=== PATIENT | male | born 1955 | race Caucasian/White ===

== ENCOUNTER 2018-09-06 16:45 | Observation (INO) ==
[2018-09-06] MEDS ORDERED: DEXTROSE 5 % IN WATER 50 ML PGGYBK.PRT IV ONE ×2 (16:54→20:33)
[2018-09-06 17:14] LABS: Hematocrit 42.5 % (37.5-50.1); Hemoglobin 15.8 g/dL (12.9-16.9); Mean Corpuscular Hemoglobin 33.8 pg (28.0-33.3); Mean Corpuscular Volume 90.8 fL (83.0-100.0); Mean Platelet Volume 10.2 fL (9.4-12.4); Platelet Count 233 K/mcL (140-400); Red Blood Count 4.68 M/mcL (4.19-5.50); Red Cell Distribution Width 12.8 % (11.5-14.5)
[2018-09-06] MEDS ORDERED: D5% in Water 500 ML IVC SCH (17:15)
[2018-09-06 17:20] LABS: INR 1.1; Prothrombin Time 12.2 Seconds (9.4-12.1)
[2018-09-06 17:23] LABS: Activated Partial Thrombo Time 34.8 Seconds (26.0-36.0)
--- NOTE | 2018-09-06 17:25 | Emergency Department Note ---
Disposition Clinical Impression: Nondiabetic hypoglycemia, Hyponatremia Pneumonia Qualifiers: Pneumonia type: due to unspecified organism Laterality: bilateral Lung location: lower lobe of lung Qualified Code(s): J18.1 - Lobar pneumonia, unspecified organism Disposition: Admitted As Inpatient Time of Disposition: 20:12 Neuro HPI - General Chief Complaint: ED Neuro Symptoms/Deficit Stated Complaint: low BS/neuro Time Seen by Provider: 09/06/18 16:48 Source: patient, EMS Mode of arrival: ambulatory Limitations: no limitations, other (Patient is extremely hard of hearing) Nursing Notes Reviewed: Yes Vital Signs Reviewed: Yes - History of Present Illness HPI Narrative: History is from EMS and the aquatics group fitness instructor. Unclear as to patient's full past medical history or the reason why he is in a [facility] but he does have psychiatric illness. Patient also has no history of diabetes or use of hypoglycemic medications. He states that he gets his pills and a little cup and did not recognize any pills to be different than his usual. States that he took them from the [facility] staff as he always does. According to [facility] staff, this afternoon just prior to arrival the patient had slight stumble ground level fall over a chair, no significant impact or injury but was drooling and not responding to staff workers and seemed to have slurred speech, right-sided facial droop, right hand weakness so 911 was called. The aquatics group fitness instructor told me that the patient was "talking out of his head" referring specifically to being on the toilet when he was not and seemed c onfused. She indicated that he was sweaty. The patient remembers that he went out to smoke a cigarette. He does admit that he had eaten usual meals today including lunch. He did not have dinner. EMS checked blood sugar at their arrival and found it to be 50. D50W 1/2 amp was administered and focal neurologic symptoms began quickly to resolve and are now completely resolved now after glucose administration. The patient did have blood sugar of 190 immediately after this dextrose, and at arrival in ED was 120. Medication list does not reveal any reasons why blood sugar would be dropping so quickly. D 5W infusion was initiated at 1 50 mL per hour Patient has no complaints. Is oriented. His only request is that he needs to urinate. Patient is a smoker. He admits to a cough. He denies any fevers or chilling. He reports no sputum production. States that he has not felt ill or more congested recently. Denies any abdominal pain. Reports his urination which is always somewhat difficult is at baseline. He denies any feeling that he was having difficulty enunciating his words or that he was having any weakness of an arm or leg. States that he feels strong in his arms and legs now. - Related Data Home Medications: Home Medications Medication Instructions Recorded Confirmed Albuterol Sulfate [Albuterol 1 puff IH Q4HR PRN 09/06/18 09/06/18 Inhaler] Aspirin [[place] Aspirin EC] 81 mg PO DAILY 09/06/18 09/06/18 Docusate [Colace] 100 mg PO BID 09/06/18 09/06/18 Lisinopril [Zestril] 40 mg PO DAILY 09/06/18 09/06/18 Metoprolol Succinate 75 mg PO DAILY 09/06/18 09/06/18 Multivit-Min/Iron Fum/Folic AC 1 each PO DAILY 09/06/18 09/06/18 [Klocp-Ppbvsxs-Onjlwzzt Tablet] Quetiapine Fumarate [Seroquel] 75 mg PO BID 09/06/18 09/06/18 Quetiapine Fumarate [Seroquel] 400 mg PO HS 09/06/18 09/06/18 Trihexyphenidyl [Artane] 2 mg PO TID 09/06/18 09/06/18 fluPHENAZine decanoate 4 ml IM Q2W 09/06/18 09/06/18 [Fluphenazine Decanoate] raNITIdine HCl [Zantac] 150 mg PO BID 09/06/18 09/06/18 Allergies/Adverse Reactions: Allergies Allergy/AdvReac Type Severity Reaction Status Date / Time No Known Allergies Allergy Verified 09/06/18 16:55 All systems ED: reviewed and negative except as stated. Review of Systems: As Per HPI Past Medical History - Past Medical History Medical history: Reports: GERD, hypertension - Social History Smoking Status: Current every day smoker Smokeless Tobacco Status: No Alcohol use: Reports: none Drug use: Reports: none Physical Exam Constitutional: Patient is oriented to person, place, and time. Skin color is pink. Appears well hydrated, body habitus normal . Non toxic appearing. Head: Normocephalic and atraumatic. External ear exam normal. Patient is extremely hard of hearing No facial droop Nose: Nose normal. Mouth/Throat: Uvula is midline, oropharynx is clear and moist and mucous membranes are normal. Eyes: Conjunctivae nl, extraocular motions and lids are normal. Pupils are equal, round, and reactive to light. Neck: Normal range of motion and phonation normal. Neck supple. Cardiovascular: Normal rate, regular rhythm, normal heart sounds. Pulmonary/Chest: No Respiratory distress. Respiratory Effort normal and breath sounds clear. Abdominal: Soft. Slightly distended and bowel sounds are normal. Mildly tenderness suprapubic area with firmly enlarged bladder to just below the umbilicus, no masses, no guarding, no rebound Genitals: No discoloration to the scrotum. No lesions on penis. No masses or swelling of the genitals Musculoskeletal: Good distal pulses. Soft compartments. Brisk cap refill. Extremities: Normal range of motion.Intact peripheral pulses. No Edema. Extremity skin color nl, no calf tenderness or palpable cords. Neurological: GCS 15. Good strength in 4 extremities Patient is alert and oriented without evidence of obvious motor deficits Skin: Diaphoretic Skin is warm, dry and intact. color is normal, cap refill is quick Psychiatric: Patient has normal mood and affect. Patient speech is normal and behavior is normal. Thought content normal. - General Limitations: no limitations General appearance: alert, in no apparent distress Course - Reevaluation(s) Reevaluation #1: Call from [facility] Dr De Jesus radiologist. no focal abnl, no hemorrhage. Time: 17:21 Reevaluation #2: blood sugar 34 when blood work drawn soon after arrival. D5W infusion begun and recheck right now was 77. Time: 17:36 Reevaluation #3: call out to NH for transfer for monitoring and inpt tx of his pneumnia. paperwork has been completed and awaiting respons Time: 19:37 - Consultations Consultation #1: Patient was quite hard of hearing. Staff went home and got his hearing aids. I reexamined him including a full repeat history after his hearing aids were obtained. The patient reports these feeling well now. Unfortunately he intermittently would become diaphoretic. We were checking his blood sugars every 30 minutes and they continue to drop. In spite of the D5 W infusion. T his was adjusted to D10 W at first 1 50 mL per hour and went blood sugars remained 70 increased to 200 mL per hour. It seems clear to me that the patient received some medication that must be dropping his blood sugar . He does have evidence of possible pneumonia on his chest x-ray. Repeat lung examination reveals no wheezing and only slight rhonchi at bilateral bases. Heart regular. He has mild hyponatremia. But he does not have any evidence of other acute abnormalities that would explain this very persistent hypoglycemia Patient will require hospitalization. I am attempting to get him admitted through the NH system since they have all of his records and know him well. His initial symptoms were a stroke mimic. He has no deficits now and is not a candidate for any intervention or thrombolytics Time: 20:08 Consultation #2: Patient has had a full meal. His blood sugar is remaining above 70. He no longer has diaphoresis. His current dose of dextrose is D10 at 200 mL per hour. He is conversational and appropriate, cooperative and calm, understands need for hospitalization. We are still awaiting transfer center at the NH to determine if they will have beds available to take the patient as an inpatient tonight Time: 20:51 Consultation #3: call back from hospitalist at the NH in [place] Dr. Barcenas . He indicates that they do not have the ability to monitor pt properly until morning and [facility]. I do not have the ability continue to monitor the patient's blood sugars every 30 minutes and adjusting of the infusions. The patient will require transfer to facility that does have bed availability now Time: 21:49 Additional Consultation(s): At 22:16 call back from Payal at the NH who indicated that she would suggest that I call the [facility]. I did so and spoke with their coordinator of genetic services and she indicated that she would get the papers to the emergency department doctor at the NH and they may be able to accept him there. 22:41 [facility] declined to accept pt in transfer. pt awake and stable. still awaiting call back from Bisi Adhikari hospitalist 23:14 pt disc w/ hospitalist at [place] Dr Pizano who is indicating that he feels as tho this facility will be able to keep pt since he has now had one hour of blood sugars above 90. 23:[address] Gomez swimming pool serviceperson for [facility] hospitalist. He and I disc case and he feels as tho if the nurses are able to do frequent blood sugar checks. he will be able to accept pt here for over nite. Hospitalist has requested that I enter admitting orders as a courtesy and I have agreed to do so. Pt remains calm, cooperative, eating peanut butter crackers, aware of plan and agreeable. 12:36 10-26 orders entered. Repeat blood sugar was 100 so based on parameters discussed with Dr. Gomez I have decreased the D10 infusion to 200 mL per hour. Repeat blood sugar 30 minutes later was 88. Vital Signs Temperature 98.1 F 09/06/18 16:48 Pulse Rate 84 09/06/18 16:48 Respiratory Rate 18 09/06/18 16:48 Blood Pressure 138/97 09/06/18 16:48 O2 Sat by Pulse Oximetry 98 09/06/18 16:48 Temperature 98.1 F 09/06/18 16:48 Pulse Rate 92 09/06/18 23:24 Respiratory Rate 16 09/06/18 23:24 Blood Pressure 135/98 09/06/18 23:24 O2 Sat by Pulse Oximetry 98 09/06/18 23:24 Oxygen Delivery Oxygen Delivery Room Air Neuro Symptoms/Deficit - MDM Narrative Medical decision making narrative: stroke mimmick from hypoglycemia likely. nl brain scan. pt sx resolved. - Differential Diagnosis Likely: cerebrovascular accident, subarachnoid hemorrhage, transient cerebral ischemia - Lab Data Lab results reviewed: Yes I reviewed the patient's lab results. Result diagrams: 09/06/18 17:04 09/06/18 21:50 Lab Results 09/06/18 09/06/18 09/06/18 Range/Units 17:04 17:04 17:04 WBC 12.2 H (4.3-11.1) K/mcL RBC 4.68 (4.19-5.50) M/mcL Hgb 15.8 (12.9-16.9) g/dL Hct 42.5 (37.5-50.1) % MCV 90.8 (83.0-100.0) fL MCH 33.8 H (28.0-33.3) pg MCHC 37.2 H (31.6-35.5) g/dL RDW 12.8 (11.5-14.5) % Plt Count 233 (140-400) K/mcL MPV 10.2 (9.4-12.4) fL PT 12.2 H (9.4-12.1) Seconds INR 1.1 APTT 34.8 (26.0-36.0) Seconds VBG pH (7.32-7.42) pH Units VBG pCO2 (41-51) mmHg VBG pO2 (25-50) mmHg VBG HCO3 (21-27) mEq/L Sodium (136-145) mEq/L Potassium (3.5-5.1) mEq/L Chloride (98-107) mEq/L Carbon Dioxide (23-29) mEq/L BUN (8-23) mg/dL Creatinine (0.70-1.30) mg/dL Est GFR ( Amer) (> 60) Est GFR (Non-Af Amer) (> 60) BUN/Creatinine Ratio (6-26) Glucose (70-105) mg/dL POC Glucose (70-99) mg/dL Calculated Osmolality (280-300) Lactic Acid (0.5-2.2) mmol/L Calcium (8.6-10.3) mg/dL Total Bilirubin (0.3-1.0) mg/dL AST (13-39) Units/L ALT (7-52) Units/L Alkaline Phosphatase (34-104) Units/L Troponin I < 0.03 (< 0.04) ng/mL B-Natriuretic Peptide (Less than 100) pg/mL Serum Total Protein (6.4-8.9) g/dL Albumin (3.5-5.7) g/dL Globulin (2.4-3.5) g/dL Albumin/Globulin Ratio (1.1-2.2) Urine Color (Yellow) Urine Clarity (Clear) Urine pH (5.0-8.0) pH Units Ur Specific [place] (1.010-1.025) Urine Protein (Neg-Trace) mg/dL Urine Glucose (UA) (Normal) mg/dL Urine Ketones (Negative) mg/dL Urine Blood (Negative) Urine Nitrite (Negative) Urine Bilirubin (Negative) Urine Urobilinogen (Normal) mg/dL Ur Leukocyte Esterase (Negative) Ur Culture Indicated? (NO) Urine Opiates Screen (Gxrbrm=481) ng/mL Ur Barbiturates Screen (Bazrxj=426) ng/mL Ur Phencyclidine Scrn (Cutoff=25) ng/mL Ur Amphetamines Screen (Wnjroi=3730) ng/mL U Benzodiazepines Scrn (Gdnhsm=666) ng/mL Urine Cocaine Screen (Cutoff= 300) ng/mL U Marijuana (THC) Screen (Cutoff = 50) ng/mL Ur Drug Screen Interp Ethyl Alcohol < 10 (Less than 10) mg/dL 09/06/18 09/06/18 09/06/18 Range/Units 17:04 17:32 17:32 WBC (4.3-11.1) K/mcL RBC (4.19-5.50) M/mcL Hgb (12.9-16.9) g/dL Hct (37.5-50.1) % MCV (83.0-100.0) fL MCH (28.0-33.3) pg MCHC (31.6-35.5) g/dL RDW (11.5-14.5) % Plt Count (140-400) K/mcL MPV (9.4-12.4) fL PT (9.4-12.1) Seconds INR APTT (26.0-36.0) Seconds VBG pH (7.32-7.42) pH Units VBG pCO2 (41-51) mmHg VBG pO2 (25-50) mmHg VBG HCO3 (21-27) mEq/L Sodium 126 L (136-145) mEq/L Potassium 3.6 (3.5-5.1) mEq/L Chloride 93 L (98-107) mEq/L Carbon Dioxide 27 (23-29) mEq/L BUN 15 (8-23) mg/dL Creatinine 1.18 (0.70-1.30) mg/dL Est GFR ( Amer) > 60 (> 60) Est GFR (Non-Af Amer) > 60 (> 60) BUN/Creatinine Ratio 13 (6-26) Glucose 34 L* (70-105) mg/dL POC Glucose (70-99) mg/dL Calculated Osmolality 259 L (280-300) Lactic Acid (0.5-2.2) mmol/L Calcium 8.5 L (8.6-10.3) mg/dL Total Bilirubin 0.4 (0.3-1.0) mg/dL AST 31 (13-39) Units/L ALT 12 (7-52) Units/L Alkaline Phosphatase 64 (34-104) Units/L Troponin I (< 0.04) ng/mL B-Natriuretic Peptide (Less than 100) pg/mL Serum Total Protein 6.4 (6.4-8.9) g/dL Albumin 3.9 (3.5-5.7) g/dL Globulin 2.5 (2.4-3.5) g/dL Albumin/Globulin Ratio 1.6 (1.1-2.2) Urine Color Yellow (Yellow) Urine Clarity Clear (Clear) Urine pH 7.0 (5.0-8.0) pH Units Ur Specific [place] 1.010 (1.010-1.025) Urine Protein Negative (Neg-Trace) mg/dL Urine Glucose (UA) Normal (Normal) mg/dL Urine Ketones Negative (Negative) mg/dL Urine Blood Negative (Negative) Urine Nitrite Negative (Negative) Urine Bilirubin Negative (Negative) Urine Urobilinogen Normal (Normal) mg/dL Ur Leukocyte Esterase Negative (Negative) Ur Culture Indicated? NO (NO) Urine Opiates Screen Negative (Mfgkpb=104) ng/mL Ur Barbiturates Screen Negative (Wnznck=586) ng/mL Ur Phencyclidine Scrn Negative (Cutoff=25) ng/mL Ur Amphetamines Screen Negative (Teqcti=5155) ng/mL U Benzodiazepines Scrn Negative (Rqbwol=701) ng/mL Urine Cocaine Screen Negative (Cutoff= 300) ng/mL U Marijuana (THC) Screen Negative (Cutoff = 50) ng/mL Ur Drug Screen Interp See Below Ethyl Alcohol (Less than 10) mg/dL 09/06/18 09/06/18 09/06/18 Range/Units 17:35 17:40 17:40 WBC (4.3-11.1) K/mcL RBC (4.19-5.50) M/mcL Hgb (12.9-16.9) g/dL Hct (37.5-50.1) % MCV (83.0-100.0) fL MCH (28.0-33.3) pg MCHC (31.6-35.5) g/dL RDW (11.5-14.5) % Plt Count (140-400) K/mcL MPV (9.4-12.4) fL PT (9.4-12.1) Seconds INR APTT (26.0-36.0) Seconds VBG pH (7.32-7.42) pH Units VBG pCO2 (41-51) mmHg VBG pO2 (25-50) mmHg VBG HCO3 (21-27) mEq/L Sodium (136-145) mEq/L Potassium (3.5-5.1) mEq/L Chloride (98-107) mEq/L Carbon Dioxide (23-29) mEq/L BUN (8-23) mg/dL Creatinine (0.70-1.30) mg/dL Est GFR ( Amer) (> 60) Est GFR (Non-Af Amer) (> 60) BUN/Creatinine Ratio (6-26) Glucose (70-105) mg/dL POC Glucose 77 (70-99) mg/dL Calculated Osmolality (280-300) Lactic Acid 1.7 (0.5-2.2) mmol/L Calcium (8.6-10.3) mg/dL Total Bilirubin (0.3-1.0) mg/dL AST (13-39) Units/L ALT (7-52) Units/L Alkaline Phosphatase (34-104) Units/L Troponin I (< 0.04) ng/mL B-Natriuretic Peptide 57 (Less than 100) pg/mL Serum Total Protein (6.4-8.9) g/dL Albumin (3.5-5.7) g/dL Globulin (2.4-3.5) g/dL Albumin/Globulin Ratio (1.1-2.2) Urine Color (Yellow) Urine Clarity (Clear) Urine pH (5.0-8.0) pH Units Ur Specific [place] (1.010-1.025) Urine Protein (Neg-Trace) mg/dL Urine Glucose (UA) (Normal) mg/dL Urine Ketones (Negative) mg/dL Urine Blood (Negative) Urine Nitrite (Negative) Urine Bilirubin (Negative) Urine Urobilinogen (Normal) mg/dL Ur Leukocyte Esterase (Negative) Ur Culture Indicated? (NO) Urine Opiates Screen (Gktals=213) ng/mL Ur Barbiturates Screen (Btswxj=311) ng/mL Ur Phencyclidine Scrn (Cutoff=25) ng/mL Ur Amphetamines Screen (Msjdzh=5659) ng/mL U Benzodiazepines Scrn (Tmirdy=927) ng/mL Urine Cocaine Screen (Cutoff= 300) ng/mL U Marijuana (THC) Screen (Cutoff = 50) ng/mL Ur Drug Screen Interp Ethyl Alcohol (Less than 10) mg/dL 09/06/18 09/06/18 09/06/18 Range/Units 17:54 18:14 18:15 WBC (4.3-11.1) K/mcL RBC (4.19-5.50) M/mcL Hgb (12.9-16.9) g/dL Hct (37.5-50.1) % MCV (83.0-100.0) fL MCH (28.0-33.3) pg MCHC (31.6-35.5) g/dL RDW (11.5-14.5) % Plt Count (140-400) K/mcL MPV (9.4-12.4) fL PT (9.4-12.1) Seconds INR APTT (26.0-36.0) Seconds VBG pH 7.37 (7.32-7.42) pH Units VBG pCO2 47 (41-51) mmHg VBG pO2 30 (25-50) mmHg VBG HCO3 27 (21-27) mEq/L Sodium (136-145) mEq/L Potassium (3.5-5.1) mEq/L Chloride (98-107) mEq/L Carbon Dioxide (23-29) mEq/L BUN (8-23) mg/dL Creatinine (0.70-1.30) mg/dL Est GFR ( Amer) (> 60) Est GFR (Non-Af Amer) (> 60) BUN/Creatinine Ratio (6-26) Glucose (70-105) mg/dL POC Glucose 45 L* 49 L* (70-99) mg/dL Calculated Osmolality (280-300) Lactic Acid (0.5-2.2) mmol/L Calcium (8.6-10.3) mg/dL Total Bilirubin (0.3-1.0) mg/dL AST (13-39) Units/L ALT (7-52) Units/L Alkaline Phosphatase (34-104) Units/L Troponin I (< 0.04) ng/mL B-Natriuretic Peptide (Less than 100) pg/mL Serum Total Protein (6.4-8.9) g/dL Albumin (3.5-5.7) g/dL Globulin (2.4-3.5) g/dL Albumin/Globulin Ratio (1.1-2.2) Urine Color (Yellow) Urine Clarity (Clear) Urine pH (5.0-8.0) pH Units Ur Specific [place] (1.010-1.025) Urine Protein (Neg-Trace) mg/dL Urine Glucose (UA) (Normal) mg/dL Urine Ketones (Negative) mg/dL Urine Blood (Negative) Urine Nitrite (Negative) Urine Bilirubin (Negative) Urine Urobilinogen (Normal) mg/dL Ur Leukocyte Esterase (Negative) Ur Culture Indicated? (NO) Urine Opiates Screen (Ohqszx=552) ng/mL Ur Barbiturates Screen (Vjwfrf=383) ng/mL Ur Phencyclidine Scrn (Cutoff=25) ng/mL Ur Amphetamines Screen (Beocqm=8153) ng/mL U Benzodiazepines Scrn (Ahxqdi=701) ng/mL Urine Cocaine Screen (Cutoff= 300) ng/mL U Marijuana (THC) Screen (Cutoff = 50) ng/mL Ur Drug Screen Interp Ethyl Alcohol (Less than 10) mg/dL 09/06/18 09/06/18 09/06/18 Range/Units 18:57 18:58 19:38 WBC (4.3-11.1) K/mcL RBC (4.19-5.50) M/mcL Hgb (12.9-16.9) g/dL Hct (37.5-50.1) % MCV (83.0-100.0) fL MCH (28.0-33.3) pg MCHC (31.6-35.5) g/dL RDW (11.5-14.5) % Plt Count (140-400) K/mcL MPV (9.4-12.4) fL PT (9.4-12.1) Seconds INR APTT (26.0-36.0) Seconds VBG pH (7.32-7.42) pH Units VBG pCO2 (41-51) mmHg VBG pO2 (25-50) mmHg VBG HCO3 (21-27) mEq/L Sodium (136-145) mEq/L Potassium (3.5-5.1) mEq/L Chloride (98-107) mEq/L Carbon Dioxide (23-29) mEq/L BUN (8-23) mg/dL Creatinine (0.70-1.30) mg/dL Est GFR ( Amer) (> 60) Est GFR (Non-Af Amer) (> 60) BUN/Creatinine Ratio (6-26) Glucose (70-105) mg/dL POC Glucose 50 L 47 L* 71 (70-99) mg/dL Calculated Osmolality (280-300) Lactic Acid (0.5-2.2) mmol/L Calcium (8.6-10.3) mg/dL Total Bilirubin (0.3-1.0) mg/dL AST (13-39) Units/L ALT (7-52) Units/L Alkaline Phosphatase (34-104) Units/L Troponin I (< 0.04) ng/mL B-Natriuretic Peptide (Less than 100) pg/mL Serum Total Protein (6.4-8.9) g/dL Albumin (3.5-5.7) g/dL Globulin (2.4-3.5) g/dL Albumin/Globulin Ratio (1.1-2.2) Urine Color (Yellow) Urine Clarity (Clear) Urine pH (5.0-8.0) pH Units Ur Specific [place] (1.010-1.025) Urine Protein (Neg-Trace) mg/dL Urine Glucose (UA) (Normal) mg/dL Urine Ketones (Negative) mg/dL Urine Blood (Negative) Urine Nitrite (Negative) Urine Bilirubin (Negative) Urine Urobilinogen (Normal) mg/dL Ur Leukocyte Esterase (Negative) Ur Culture Indicated? (NO) Urine Opiates Screen (Mivsea=125) ng/mL Ur Barbiturates Screen (Hkggiy=183) ng/mL Ur Phencyclidine Scrn (Cutoff=25) ng/mL Ur Amphetamines Screen (Snmdnu=3588) ng/mL U Benzodiazepines Scrn (Xkrdpz=524) ng/mL Urine Cocaine Screen (Cutoff= 300) ng/mL U Marijuana (THC) Screen (Cutoff = 50) ng/mL Ur Drug Screen Interp Ethyl Alcohol (Less than 10) mg/dL 09/06/18 09/06/18 09/06/18 Range/Units 20:20 21:13 21:44 WBC (4.3-11.1) K/mcL RBC (4.19-5.50) M/mcL Hgb (12.9-16.9) g/dL Hct (37.5-50.1) % MCV (83.0-100.0) fL MCH (28.0-33.3) pg MCHC (31.6-35.5) g/dL RDW (11.5-14.5) % Plt Count (140-400) K/mcL MPV (9.4-12.4) fL PT (9.4-12.1) Seconds INR APTT (26.0-36.0) Seconds VBG pH (7.32-7.42) pH Units VBG pCO2 (41-51) mmHg VBG pO2 (25-50) mmHg VBG HCO3 (21-27) mEq/L Sodium (136-145) mEq/L Potassium (3.5-5.1) mEq/L Chloride (98-107) mEq/L Carbon Dioxide (23-29) mEq/L BUN (8-23) mg/dL Creatinine (0.70-1.30) mg/dL Est GFR ( Amer) (> 60) Est GFR (Non-Af Amer) (> 60) BUN/Creatinine Ratio (6-26) Glucose (70-105) mg/dL POC Glucose 83 69 L 84 (70-99) mg/dL Calculated Osmolality (280-300) Lactic Acid (0.5-2.2) mmol/L Calcium (8.6-10.3) mg/dL Total Bilirubin (0.3-1.0) mg/dL AST (13-39) Units/L ALT (7-52) Units/L Alkaline Phosphatase (34-104) Units/L Troponin I (< 0.04) ng/mL B-Natriuretic Peptide (Less than 100) pg/mL Serum Total Protein (6.4-8.9) g/dL Albumin (3.5-5.7) g/dL Globulin (2.4-3.5) g/dL Albumin/Globulin Ratio (1.1-2.2) Urine Color (Yellow) Urine Clarity (Clear) Urine pH (5.0-8.0) pH Units Ur Specific [place] (1.010-1.025) Urine Protein (Neg-Trace) mg/dL Urine Glucose (UA) (Normal) mg/dL Urine Ketones (Negative) mg/dL Urine Blood (Negative) Urine Nitrite (Negative) Urine Bilirubin (Negative) Urine Urobilinogen (Normal) mg/dL Ur Leukocyte Esterase (Negative) Ur Culture Indicated? (NO) Urine Opiates Screen (Wojeri=616) ng/mL Ur Barbiturates Screen (Iedxdh=063) ng/mL Ur Phencyclidine Scrn (Cutoff=25) ng/mL Ur Amphetamines Screen (Mltkzg=7465) ng/mL U Benzodiazepines Scrn (Ktabiy=993) ng/mL Urine Cocaine Screen (Cutoff= 300) ng/mL U Marijuana (THC) Screen (Cutoff = 50) ng/mL Ur Drug Screen Interp Ethyl Alcohol (Less than 10) mg/dL 09/06/18 09/06/18 09/06/18 Range/Units 21:50 22:12 22:40 WBC (4.3-11.1) K/mcL RBC (4.19-5.50) M/mcL Hgb (12.9-16.9) g/dL Hct (37.5-50.1) % MCV (83.0-100.0) fL MCH (28.0-33.3) pg MCHC (31.6-35.5) g/dL RDW (11.5-14.5) % Plt Count (140-400) K/mcL MPV (9.4-12.4) fL PT (9.4-12.1) Seconds INR APTT (26.0-36.0) Seconds VBG pH (7.32-7.42) pH Units VBG pCO2 (41-51) mmHg VBG pO2 (25-50) mmHg VBG HCO3 (21-27) mEq/L Sodium 128 L (136-145) mEq/L Potassium 3.6 (3.5-5.1) mEq/L Chloride 91 L (98-107) mEq/L Carbon Dioxide 30 H (23-29) mEq/L BUN 14 (8-23) mg/dL Creatinine 1.35 H (0.70-1.30) mg/dL Est GFR ( Amer) > 60 (> 60) Est GFR (Non-Af Amer) 54 L (> 60) BUN/Creatinine Ratio 10 (6-26) Glucose 59 L (70-105) mg/dL POC Glucose 67 L 95 (70-99) mg/dL Calculated Osmolality 264 L (280-300) Lactic Acid (0.5-2.2) mmol/L Calcium 9.1 (8.6-10.3) mg/dL Total Bilirubin (0.3-1.0) mg/dL AST (13-39) Units/L ALT (7-52) Units/L Alkaline Phosphatase (34-104) Units/L Troponin I (< 0.04) ng/mL B-Natriuretic Peptide (Less than 100) pg/mL Serum Total Protein (6.4-8.9) g/dL Albumin (3.5-5.7) g/dL Globulin (2.4-3.5) g/dL Albumin/Globulin Ratio (1.1-2.2) Urine Color (Yellow) Urine Clarity (Clear) Urine pH (5.0-8.0) pH Units Ur Specific [place] (1.010-1.025) Urine Protein (Neg-Trace) mg/dL Urine Glucose (UA) (Normal) mg/dL Urine Ketones (Negative) mg/dL Urine Blood (Negative) Urine Nitrite (Negative) Urine Bilirubin (Negative) Urine Urobilinogen (Normal) mg/dL Ur Leukocyte Esterase (Negative) Ur Culture Indicated? (NO) Urine Opiates Screen (Mfssqt=503) ng/mL Ur Barbiturates Screen (Wilhfy=483) ng/mL Ur Phencyclidine Scrn (Cutoff=25) ng/mL Ur Amphetamines Screen (Ovwmzy=6155) ng/mL U Benzodiazepines Scrn (Vwojtg=360) ng/mL Urine Cocaine Screen (Cutoff= 300) ng/mL U Marijuana (THC) Screen (Cutoff = 50) ng/mL Ur Drug Screen Interp Ethyl Alcohol (Less than 10) mg/dL 09/06/18 09/06/18 Range/Units 23:14 23:46 WBC (4.3-11.1) K/mcL RBC (4.19-5.50) M/mcL Hgb (12.9-16.9) g/dL Hct (37.5-50.1) % MCV (83.0-100.0) fL MCH (28.0-33.3) pg MCHC (31.6-35.5) g/dL RDW (11.5-14.5) % Plt Count (140-400) K/mcL MPV (9.4-12.4) fL PT (9.4-12.1) Seconds INR APTT (26.0-36.0) Seconds VBG pH (7.32-7.42) pH Units VBG pCO2 (41-51) mmHg VBG pO2 (25-50) mmHg VBG HCO3 (21-27) mEq/L Sodium (136-145) mEq/L Potassium (3.5-5.1) mEq/L Chloride (98-107) mEq/L Carbon Dioxide (23-29) mEq/L BUN (8-23) mg/dL Creatinine (0.70-1.30) mg/dL Est GFR ( Amer) (> 60) Est GFR (Non-Af Amer) (> 60) BUN/Creatinine Ratio (6-26) Glucose (70-105) mg/dL POC Glucose 91 100 H (70-99) mg/dL Calculated Osmolality (280-300) Lactic Acid (0.5-2.2) mmol/L Calcium (8.6-10.3) mg/dL Total Bilirubin (0.3-1.0) mg/dL AST (13-39) Units/L ALT (7-52) Units/L Alkaline Phosphatase (34-104) Units/L Troponin I (< 0.04) ng/mL B-Natriuretic Peptide (Less than 100) pg/mL Serum Total Protein (6.4-8.9) g/dL Albumin (3.5-5.7) g/dL Globulin (2.4-3.5) g/dL Albumin/Globulin Ratio (1.1-2.2) Urine Color (Yellow) Urine Clarity (Clear) Urine pH (5.0-8.0) pH Units Ur Specific [place] (1.010-1.025) Urine Protein (Neg-Trace) mg/dL Urine Glucose (UA) (Normal) mg/dL Urine Ketones (Negative) mg/dL Urine Blood (Negative) Urine Nitrite (Negative) Urine Bilirubin (Negative) Urine Urobilinogen (Normal) mg/dL Ur Leukocyte Esterase (Negative) Ur Culture Indicated? (NO) Urine Opiates Screen (Epplqq=705) ng/mL Ur Barbiturates Screen (Stjfvp=037) ng/mL Ur Phencyclidine Scrn (Cutoff=25) ng/mL Ur Amphetamines Screen (Ajgveo=6648) ng/mL U Benzodiazepines Scrn (Jkajpm=388) ng/mL Urine Cocaine Screen (Cutoff= 300) ng/mL U Marijuana (THC) Screen (Cutoff = 50) ng/mL Ur Drug Screen Interp Ethyl Alcohol (Less than 10) mg/dL - Radiology Data Radiology results reviewed: Yes I reviewed the patient's radiology results. CT brain without acute intracranial abnormalities per radiology Chest x-ray portable report from radiology impression "mild. Perihilar vascular congestion is seen. Low lung volumes" - EKG Data EKG attestation: Yes I reviewed and interpreted this EKG. EKG results narrative: Some artifact of baseline. Otherwise no evidence of acute ST-T wave changes. Normal intervals. EKG shows normal: sinus rhythm Rate: normal Rhythm: NSR NIH Stroke Scale - Level of Consciousness LOC: Alert - LOC Questions LOC Questions: Answers both correctly - LOC Commands LOC Commands: Performs both correctly - Best Gaze Best Gaze: Normal - Visual Visual: No visual loss - Facial Palsy Facial Palsy: Normal - Motor Arms Motor Arm-Left: No drift for 10 seconds Motor Arm-Right: No drift for 10 seconds - Motor Legs Motor Leg-Left: No drift for 5 seconds Motor Leg-Right: No drift for 5 seconds - Limb Ataxia Limb Ataxia: Normal, No Ataxia - Sensory Sensory: Normal - Best Language Best Language: No aphasia - Dysarthria Dysarthria: Normal - Extinction and Inattention Extinction and Inattention: Normal - NIHSS Total Score NIHSS Total Score: 0 TPA Checklist - LKW: 3-4.5 hrs Add. Warnings/Precautions Patient/family understanding: The patient/family members have been counseled and understood the risk, benefit, and alternatives of treatment.
[2018-09-06 17:28] LABS: Ethanol < 10 mg/dL (Less than 10)
[2018-09-06] MEDS ORDERED: Ampicillin/Sulbactam 3,000 MG in 0.9 % Sodium Chloride Mini Bag 100 ML IVPB ONE (17:30)
[2018-09-06 17:31] LABS: Alanine Aminotransferase 12 Units/L (7-52); Albumin 3.9 g/dL (3.5-5.7); Albumin/Globulin Ratio 1.6 (1.1-2.2); Alkaline Phosphatase 64 Units/L (34-104); Aspartate Amino Transferase 31 Units/L (13-39); BUN/Creatinine Ratio 13 (6-26); Bilirubin,Total 0.4 mg/dL (0.3-1.0); Blood Urea Nitrogen 15 mg/dL (8-23); Calcium 8.5 mg/dL (8.6-10.3); Carbon Dioxide 27 mEq/L (23-29); Chloride 93 mEq/L (98-107); Globulin 2.5 g/dL (2.4-3.5); Glucose 34 mg/dL (70-105); Mean Corpuscular HGB Conc 37.2 g/dL (31.6-35.5); Osmolality,Calculated 259 (280-300); Potassium 3.6 mEq/L (3.5-5.1); Sodium 126 mEq/L (136-145); Total Protein 6.4 g/dL (6.4-8.9); Troponin I < 0.03 ng/mL (< 0.04); eGFR For Non-African Americans > 60 (> 60)
[2018-09-06 18:00] LABS: Bilirubin,Urine Negative (Negative); Blood,Urine Negative (Negative); Clarity,Urine Clear (Clear); Color,Urine Yellow (Yellow); Glucose,Urine (UA) Normal (Normal); Ketones,Urine Negative (Negative); Leukocyte Esterase,Urine Negative (Negative); Nitrite,Urine Negative (Negative); Protein,Urine Negative (Neg-Trace); Urobilinogen,Urine Normal (Normal)
[2018-09-06 18:12] LABS: VBG HCO3 27 mEq/L (21-27); VBG PCO2 47 mmHg (41-51); VBG PH 7.37 pH Units (7.32-7.42); VBG PO2 30 mmHg (25-50)
[2018-09-06] MEDS: *HR* Dextrose 50 % in Water (Syg) 50 ML SYRINGE IVP ONE ×2 (18:20→19:09)
[2018-09-06 18:51] LABS: Amphetamine Screen,Urine Negative ng/mL (Cutoff=1000); Barbiturate Screen,Urine Negative ng/mL (Cutoff=200); Benzodiazepines Screen,Urine Negative ng/mL (Cutoff=200); Cannabinoid Screen,Urine Negative ng/mL (Cutoff = 50); Cocaine Screen,Urine Negative ng/mL (Cutoff= 300); Opiate Screen,Urine Negative ng/mL (Cutoff=300); Phencyclidine Screen,Urine Negative ng/mL (Cutoff=25)
[2018-09-06] MEDS ORDERED: *HR* Dextrose 50 % in Water (Syg) 50 ML SYRINGE ONE (18:59)
[2018-09-06] MEDS ORDERED: D10% in Water 500 ML IVC ONE (18:59)
[2018-09-06] MEDS ORDERED: D5 IVC ONE (20:45)
[2018-09-06] MEDS ORDERED: WATER IVC ONE (20:45)
[2018-09-06 22:19] LABS: BUN/Creatinine Ratio 10 (6-26); Blood Urea Nitrogen 14 mg/dL (8-23); Calcium 9.1 mg/dL (8.6-10.3); Carbon Dioxide 30 mEq/L (23-29); Chloride 91 mEq/L (98-107); Glucose 59 mg/dL (70-105); Osmolality,Calculated 264 (280-300); Potassium 3.6 mEq/L (3.5-5.1); Sodium 128 mEq/L (136-145); eGFR For Non-African Americans 54 (> 60)
[2018-09-06] MEDS: D10% in Water 500 ML IVC SCH (22:20)
[2018-09-07] MEDS ORDERED: Ipratropium/Albuterol Neb 3 ML IH ONE ×2 (00:29→01:13)
[2018-09-07] MEDS: D10% in Water 500 ML IVC SCH ×4 (00:45→08:11)
[2018-09-07] MEDS ORDERED: *HR* Dextrose 50 % in Water (Syg) 50 ML SYRINGE ONE (01:13)
[2018-09-07] MEDS ORDERED: Acetaminophen 325 MG TABLET PO PRN (01:13)
[2018-09-07] MEDS ORDERED: Naloxone 0.4 MG/ML INJ IVP PRN (01:13)
[2018-09-07 05:00] LABS: BUN/Creatinine Ratio 11 (6-26); Blood Urea Nitrogen 14 mg/dL (8-23); Calcium 9.2 mg/dL (8.6-10.3); Carbon Dioxide 24 mEq/L (23-29); Chloride 95 mEq/L (98-107); Glucose 115 mg/dL (70-105); Magnesium 1.7 mg/dL (1.6-2.6); Osmolality,Calculated 265 (280-300); Phosphorous 3.2 mg/dL (2.7-4.5); Potassium 3.9 mEq/L (3.5-5.1); Sodium 127 mEq/L (136-145); eGFR For Non-African Americans 55 (> 60)
[2018-09-07] MEDS ORDERED: Ampicillin/Sulbactam 3,000 MG in 0.9 % Sodium Chloride Mini Bag 100 ML IVPB SCH (06:00)
[2018-09-07] MEDS ORDERED: Famotidine 20 MG TABLET PO SCH (07:00)
[2018-09-07] MEDS ORDERED: *HR* Enoxaparin 40 MG/0.4 ML SYRINGE SQ SCH (07:00)
[2018-09-07 07:05] VITALS: BP 132/79
[2018-09-07] MEDS ORDERED: Aspirin Enteric Coated 81 MG Tablet PO SCH (09:00)
[2018-09-07] MEDS ORDERED: Lisinopril 20 MG TABLET PO SCH (09:00)
[2018-09-07] MEDS ORDERED: Metoprolol XL (24 HR) Succ 50 MG TAB.ER.24H PO SCH (09:00)
--- NOTE | 2018-09-07 09:18 | Internal Med History&Physical ---
Date of Encounter: 09/07/18 Time of Encounter: 09:15 Assessment and Plan (1) Nondiabetic hypoglycemia Current visit: Yes Status: Acute In ED he was noted to be hypoglycemic he is not a diabetic and is not tkaing any medications which could cause lives in a group house . During his ED visit there was some difficulty to sustain his blood sugars and required multiple vials of Dextrose . At the present time he is eating his meals now his last few blood sugars have been wthin normal range now . He did state that he was not eating well before his admission . He also denied taking anyone else medication by mistake. There is no evidence of sepsis or any infection either . WBC is mildly high UA is negative CXR negative however he is COPD since he does smoke . He was started on Antibiotics during his admission . Plan is to continue to eat and watch if stable he could be discharged by evening or in the morning . (2) Hyponatremia Current visit: Yes Status: Acute Noted to be hyponaterimic Cause not known .he has hx of psychosis and could be his drinking water . Will follow > Control fluid intake and then followup (3) HTN (hypertension) Current visit: Yes Status: Acute Continue present medications at the present . His BP is s table Qualifiers: Hypertension type: essential hypertension Qualified Code(s): I10 - Essential (primary) hypertension (4) Psychosis Current visit: Yes Status: Acute hx of Psychosis and has been getting his medications from [place] continue present meds including cogentin which he is taking it for his tremors per records. he is on Fluphenazine decon. injectable q 2 weeks. Clinically he is stable Qualifiers: Psychosis type: unspecified psychosis type Qualified Code(s): F29 - Unspecified psychosis not due to a substance or known physiological condition Internal Medicine - H&P: HPI Admitted From: Emergency Dept History of present illness: Mr. Galvan is a 62 year old male who is followed at [facility] hospital lives in a retirement was noted to fell down while smoking . He denies that he hit his head or lost consciousness. he denies that he had chest pain Nausea vomiting or diarrhea At the ED he was found to be hypoglycemic . He is not a diabetic and is not taking any medications to lower his blood sugars. He denies any fever or chills no urinary complains NO SOB smokes but no cough, chills SON chest pain or palpitation No complains of dizziness or weakness. He denies that he had taken any over the counter drugs or was drinking . last ETOH was many years ago . Past Med Surg Social Fam HX - Past Medical History Medical history: GERD, hypertension Psychiatric history: anxiety, other - Social History Smoking Status: Current every day smoker Smokeless Tobacco Status: No Alcohol use: none Drug use: none Internal Medicine - H&P: Meds Albuterol Sulfate [Albuterol Inhaler] 1 puff IH Q4HR PRN 09/06/18 [History] Aspirin [[place] Aspirin EC] 81 mg PO DAILY 09/06/18 [History] Docusate [Colace] 100 mg PO BID 09/06/18 [History] Lisinopril [Zestril] 40 mg PO DAILY 09/06/18 [History] Metoprolol Succinate 75 mg PO DAILY 09/06/18 [History] Multivit-Min/Iron Fum/Folic AC [Lrsyi-Gdpsger-Klfwpfrg Tablet] 1 each PO DAILY 09/06/18 [History] Quetiapine Fumarate [Seroquel] 75 mg PO BID 09/06/18 [History] Quetiapine Fumarate [Seroquel] 400 mg PO HS 09/06/18 [History] Trihexyphenidyl [Artane] 2 mg PO TID 09/06/18 [History] fluPHENAZine decanoate [Fluphenazine Decanoate] 4 ml IM Q2W 09/06/18 [History] raNITIdine HCl [Zantac] 150 mg PO BID 09/06/18 [History] Allergy/AdvReac Type Severity Reaction Status Date / Time No Known Allergies Allergy Verified 09/06/18 16:55 All Systems PM: A 10-system review of systems was performed and is negative for pertinent findings except as documented above in the HPI. - Constitutional Constitutional: falls, no anorexia, no chills, no excessive sweating, no fatigue, no fever(s), no lethargy, no malaise, no night sweats, no weakness, no weight gain, no weight loss - EENT Eyes: no blurry vision, no diplopia, no discharge, no pain, no photophobia, no seeing flashes Ears: no ear pain Nose, mouth and throat: no bleeding gums, no dry mouth, no dysphagia, no epistaxis, no hoarseness, no nasal congestion, no nasal discharge, no neck pain, no sinus pain, no sinus pressure - Cardiovascular Cardiovascular ROS IM: no chest pain, no claudication, no diaphoresis, no dyspnea, no dyspnea on exertion, no edema, no irregular heart rhythm, no lightheadedness, no orthopnea, no palpitations, no paroxysmal nocturnal dyspnea, no syncope - Respiratory Respiratory: no cough, no dyspnea, no hemoptysis, no dyspnea on exertion, no wheezing, no snoring, no pain on inspiration, no chest congestion, no excessive phlegm production, no change in phlegm color - Gastrointestinal Gastrointestinal: no abdominal pain, no belching, no change in bowel habits, no change in stool character, no constipation, no cramping, no diarrhea, no dyspepsia, no heartburn, no hematemesis, no hematochezia, no loose stools, no melena, no nausea, no vomiting - Genitourinary Genitourinary ROS male: no difficulty urinating, no dysuria, no flank pain, no nocturia, no penile discharge, no testicular pain, no urinary frequency, no urinary hesitancy, no urinary urgency - Musculoskeletal Musculoskeletal ROS IM: no arthralgias, no atrophy, no back pain - Integumentary Integumentary IM: no erythema - Neurological Neurological ROS: tremor(s) (resting tremors both hands not pinrolling ), no abnormal gait, no abnormal speech, no burning sensations, no confusion, no paresthesias - Constitutional Vitals: Temp Pulse Resp BP Pulse Ox 98.5 F 109 16 132/79 95 09/07/18 07:04 09/07/18 07:04 09/07/18 07:04 09/07/18 07:04 09/07/18 07:04 General appearance: Present: A&O X 3, pleasant, obese, answers questions appropriately - Head Head exam: Present: atraumatic - Eye Eye exam: Present: EOMI, PERRL. Absent: scleral icterus, conjuntiva pink Pupils: Present: PERRL - ENT ENT exam: Present: mucous membranes moist, normal oropharynx - Neck Neck exam general surgery: Present: full ROM, supple. Absent: tenderness, nuchal rigidity - Respiratory Respiratory exam: Present: decreased breath sounds, prolonged expiratory phase, wheezes. Absent: chest wall tenderness, respiratory distress, rhonchi, stridor, tachypnea Additional comments: some mild crackles and prolong expiration on his back decrease air entry in the front both sides - Cardiovascular Cardiovascular exam: Present: RRR, +S1, +S2, tachycardia. Absent: irregular rhythm, JVD, systolic murmur Additional comments: mild tachycardia noted - GI/Abdominal GI/Abdominal exam: Present: normal bowel sounds, soft. Absent: diminished bowel sounds, rebound, rigid, splenomegaly, tenderness Additional comments: mildly obese soft .non tender BS ++ - Extremities Exam Extremities exam: Present: full ROM. Absent: pedal edema, tenderness - Neurological Exam Neurological exam: Present: alert, CN II-XII intact, oriented X3, no focal deficits, strengths equal and symetr throughout. Absent: facial droop, speech deficit Additional comments: He is able to stand and walk without any difficulty or support no dizziness - Psychiatric Psychiatric exam: Absent: homicidal ideation, suicidal ideation Additional comments: hx of Psychosis Internal Med - H&P Results - Labs CBC & Chem 7: 09/06/18 17:04 09/07/18 04:13 Labs: Short CBC 09/06/18 Range/Units 17:04 WBC 12.2 H (4.3-11.1) K/mcL Hgb 15.8 (12.9-16.9) g/dL Hct 42.5 (37.5-50.1) % Plt Count 233 (140-400) K/mcL [facility] 09/06/18 09/06/18 09/07/18 17:04 21:50 04:13 Sodium 126 L 128 L 127 L Potassium 3.6 3.6 3.9 Chloride 93 L 91 L 95 L Carbon Dioxide 27 30 H 24 BUN 15 14 14 Creatinine 1.18 1.35 H 1.32 H Glucose 34 L* 59 L 115 H Calcium 8.5 L 9.1 9.2 Cardiac Enzymes 09/06/18 Range/Units 17:04 Troponin I < 0.03 (< 0.04) ng/mL Liver Function 09/06/18 Range/Units 17:04 Total Bilirubin 0.4 (0.3-1.0) mg/dL AST 31 (13-39) Units/L ALT 12 (7-52) Units/L Alkaline Phosphatase 64 (34-104) Units/L Albumin 3.9 (3.5-5.7) g/dL Urine 09/06/18 Range/Units 17:32 Urine Color Yellow (Yellow) Urine Clarity Clear (Clear) Urine pH 7.0 (5.0-8.0) pH Units Ur Specific [place] 1.010 (1.010-1.025) Urine Protein Negative (Neg-Trace) mg/dL Urine Glucose (UA) Normal (Normal) mg/dL - ABG Interpretation ABG results: 09/06/18 17:54 VBG pH 7.37 VBG pCO2 47 VBG pO2 30 VBG HCO3 27 - Impressions ITS Impressions Head CT 09/06/18 16:49 IMPRESSION: No acute intracranial abnormality. Slightly limited exam due to artifact. Critical results were called by Dr. Marques Beltran to Renetta Rosenberg on 09/06/2018 at 17:22. D/ / Marques Beltran / Marques Beltran Interpreting Provider: Marques Beltran Chest X-Ray 09/06/18 16:50 IMPRESSION: 1. Mild perihilar vascular congestion is seen. 2. Low lung volumes. D/ / 09/06/2018 17:34:38 Thao High MD / mykel Interpreting Provider: Thao High MD
--- NOTE | 2018-09-07 12:12 | Discharge Summary ---
Orders not resulted at time of discharge: Pending orders 09/06/18 17:40 Culture,Blood [BC] Stat 09/07/18 01:30 Drug Screen, Urine [UCHEM] Stat 09/08/18 04:00 Basic Metabolic Panel AM 0400 Osmolality AM 0400 Osmolality,Urine [UCHEM] AM 0400 TSH [Thyroid Stimulating Hormone] AM 0400 Date of Encounter: 09/07/18 Time of Encounter: 12:11 - Discharge Diagnosis (1) Nondiabetic hypoglycemia Priority: Primary Status: Acute Comments: Patient was admitted due to nondiabetic hypoglycemia. Patient was treated with glucose, IV fluids and observed overnight. Patient's glucose has maintained greater than 100 today and patient has been eating well with a regular diet. Patient denies any issues. We will be [facility] back [facility] his [facility] with no changes in current medications. Suspect possible medication error precipitated patient's admission. Patient recommended to follow-up with PCP in 1 week (2) HTN (hypertension) Priority: Secondary Status: Acute Comments: No acute issues during his stay. Vital signs remained stable. Patient to continue with current medications after discharge and follow-up with PCP. Qualifiers: Hypertension type: essential hypertension Qualified Code(s): I10 - Essential (primary) hypertension Hospital course: Mr. Galvan is a 62 year old male who is followed at [facility] and lives in a prison and was noted to fall down while smoking . He denies that he hit his head or lost consciousness. He had a change in LOC and was taken to the ED, where he was noted to be hypoglycemic with a glucose <50. He is not a diabetic and is not takaing any diabetic medications. During his ED visit there was some difficulty in maintaining his blood sugars and required multiple vials of Dextrose. Patient was started on IV fluids and admitted overnight for observation and to have his glucose monitored frequently. At the present time he is eating his meals now his last few blood sugars have been wthin normal range >100. He also denied taking anyone else medication by mistake. Patient currently denies any discomforts or shortness of breath. Patient's last glucose was prior to lunch was greater than 150. Patient will be discharged to home with recommendations follow-up with his PCP in 1 week. Patient is to continue with his current home medications. Noted that patient lives across the street from the emergency department. Discharge discussed with: patient Time spent discussing smoking cessation with patient: 3 to 10 minutes - Time Spent with Patient Total time spent providing and/or coordinating discharge services: Less than 30 minutes - Discharge Medications Home Medications: Albuterol Sulfate [Albuterol Inhaler] 1 puff IH Q4HR PRN 09/06/18 [History] Aspirin [[place] Aspirin EC] 81 mg PO DAILY 09/06/18 [History] Docusate [Colace] 100 mg PO BID 09/06/18 [History] Lisinopril [Zestril] 40 mg PO DAILY 09/06/18 [History] Metoprolol Succinate 75 mg PO DAILY 09/06/18 [History] Multivit-Min/Iron Fum/Folic AC [Ynuts-Xidilbm-Cmocujmw Tablet] 1 each PO DAILY 09/06/18 [History] Quetiapine Fumarate [Seroquel] 75 mg PO BID 09/06/18 [History] Quetiapine Fumarate [Seroquel] 400 mg PO HS 09/06/18 [History] Trihexyphenidyl [Artane] 2 mg PO TID 09/06/18 [History] fluPHENAZine decanoate [Fluphenazine Decanoate] 4 ml IM Q2W 09/06/18 [History] raNITIdine HCl [Zantac] 150 mg PO BID 09/06/18 [History] Allergies/Adverse Reactions: Allergy/AdvReac Type Severity Reaction Status Date / Time No Known Allergies Allergy Verified 09/06/18 16:55 Date of admission: 09/07/18 00:10 Primary care physician: PCP NONE Consults: 09/07/18 02:29 Consult to Home Specialist [CONS] Routine Reason for Consult: evaluate and treat. Pt comes [place]. Discharging clinician: Jennifer Gomez - Constitutional Vitals: Temp Pulse Resp BP Pulse Ox 98.5 F 109 16 132/79 95 09/07/18 07:04 09/07/18 07:04 09/07/18 07:04 09/07/18 07:04 09/07/18 07:04 General appearance: Present: A&O X 3, pleasant, obese, answers questions appropriately - Head Head exam: Present: atraumatic, normocephalic - Eye Eye exam: Present: PERRL, conjuntiva pink, sclera anicteric Pupils: Present: PERRL - Neck Neck exam general surgery: Present: supple, trachea midline. Absent: lymphadenopathy - Respiratory Respiratory exam: Present: CTAB. Absent: accessory muscle use, rales, rhonchi, wheezes - Cardiovascular Cardiovascular exam: Present: RRR, +S1, +S2. Absent: diastolic murmur, gallop, rubs, systolic murmur - GI/Abdominal GI/Abdominal exam: Present: normal bowel sounds, soft, no peritoneal signs. Absent: distended, tenderness - Extremities Exam Extremities exam: Present: warm, radial pulses palpable and symmetrical. Absent: calf tenderness, cyanotic, pedal edema - Neurological Exam Neurological exam: Present: CN II-XII intact, oriented X3, no focal deficits. Absent: pronater drift, facial droop, speech deficit - Skin Skin exam: Present: dry, intact - Patient Status Disposition: Home Health Service Condition: Good Functional capacity at discharge: independent ambulation Overall status at discharge: patient is progressing back to baseline - Discharge Instructions Follow Up With: NONE,PCP [Primary Care Provider] - - Diet and Activity Activity: increase activity as tolerated Diet: advance to your usual diet
--- NOTE | 2018-09-08 23:07 | Electrocardiograph Report ---
[place] [id number] Test Date: 2018-09-06 Pat Name: Darin Galvan Department: 2000 Room: 113 Gender: M Engineering Technologist: SULEMA : 1955 Requested By: Renetta Rosenberg Order Number: [id number] Reading MD: Can Lou Measurements Intervals [place] Rate: 94 P: 48 ME: 148 QRS: 19 QRSD: 91 T: 46 QT: 334 QTc: 386 Interpretive Statements SINUS RHYTHM NON-SPECIFIC ST T ABNORMALITIES Electronically Signed On 09-08-2018 23:05:26 EDT by Can Lou
== END 2018-09-07 14:25 | disposition home health service (06) ==
LOC: INPGRE 16:45 → EMEROOGRE 16:45 → INPGRE 09-07 00:59

== ENCOUNTER 2022-07-24 22:25 | Inpatient (IN) ==
[2022-07-24 23:22] LABS: Basophils # 0.1 K/mcL (0.0-0.2); Basophils % 0.7 %; Eosinophils # 0.4 K/mcL (0.0-0.6); Eosinophils % 3.9 %; Hematocrit 40.2 % (37.5-50.1); Hemoglobin 14.7 g/dL (12.9-16.9); Immature Granulocytes % 0.4 % (0-4); Lymphocytes # 1.4 K/mcL (0.6-4.6); Lymphocytes % 14.1 %; Mean Corpuscular HGB Conc 36.6 g/dL (31.6-35.5); Mean Corpuscular Hemoglobin 33.2 pg (28.0-33.3); Mean Corpuscular Volume 90.7 fL (83.0-100.0); Mean Platelet Volume 10.6 fL (9.4-12.4); Monocytes % 9.8 %; Neutrophils # 7.2 K/mcL (1.6-8.9); Platelet Count 248 K/mcL (140-400); Red Blood Count 4.43 M/mcL (4.19-5.50); Red Cell Distribution Width 13.2 % (11.5-14.5); Segmented Neutrophils % 71.1 %; White Blood Count 10.2 K/mcL (4.3-11.1)
[2022-07-24 23:28] LABS: INR 1.1; Prothrombin Time 11.9 Seconds (9.4-12.1)
[2022-07-24 23:39] LABS: Troponin I < 0.03 ng/mL (< 0.04)
[2022-07-24 23:40] LABS: Alanine Aminotransferase 36 Units/L (7-52); Albumin 4.3 g/dL (3.5-5.7); Albumin/Globulin Ratio 1.7 (1.1-2.2); Alkaline Phosphatase 60 Units/L (34-104); Aspartate Amino Transferase 90 Units/L (13-39); BUN/Creatinine Ratio 20 (6-26); Bilirubin,Direct 0.1 mg/dL (0.0-0.2); Bilirubin,Indirect 0.5 mg/dL (0.0-1.0); Bilirubin,Total 0.6 mg/dL (0.3-1.0); Blood Urea Nitrogen 28 mg/dL (8-23); Calcium 9.1 mg/dL (8.6-10.3); Carbon Dioxide 25 mEq/L (23-29); Chloride 99 mEq/L (98-107); Ethanol < 10 mg/dL (Less than 10); Globulin 2.6 g/dL (2.4-3.5); Glucose 112 mg/dL (70-105); Osmolality,Calculated 284 (280-300); Potassium 4.1 mEq/L (3.5-5.1); Sodium 134 mEq/L (136-145); Total Protein 6.9 g/dL (6.4-8.9)
[2022-07-25] MEDS ORDERED: Haloperidol Lactate 5 MG/ML VIAL IM ONE (00:39)
[2022-07-25] MEDS ORDERED: *HR* LORazepam 2 MG/ML VIAL IM ONE (00:39)
[2022-07-25] MEDS ORDERED: Naloxone 0.4 MG/ML INJ IVP PRN (00:48)
[2022-07-25] MEDS ORDERED: Ondansetron ODT 4 MG TAB.RAPDIS SL PRN (00:48)
[2022-07-25 04:43] LABS: Hematocrit 36.4 % (37.5-50.1); Hemoglobin 13.1 g/dL (12.9-16.9); Mean Corpuscular Hemoglobin 32.7 pg (28.0-33.3); Mean Corpuscular Volume 90.8 fL (83.0-100.0); Mean Platelet Volume 10.4 fL (9.4-12.4); Platelet Count 228 K/mcL (140-400); Red Blood Count 4.01 M/mcL (4.19-5.50); Red Cell Distribution Width 13.1 % (11.5-14.5); White Blood Count 9.9 K/mcL (4.3-11.1)
[2022-07-25 04:58] LABS: Calcium 8.6 mg/dL (8.6-10.3); Potassium 3.4 mEq/L (3.5-5.1)
[2022-07-25 09:54] LABS: Bilirubin,Urine Negative (Negative); Blood,Urine Negative (Negative); Clarity,Urine Clear (Clear); Color,Urine Yellow (Yellow); Glucose,Urine (UA) Normal (Normal); Ketones,Urine Negative (Negative); Leukocyte Esterase,Urine Negative (Negative); Nitrite,Urine Negative (Negative); Protein,Urine Negative (Neg-Trace); Urobilinogen,Urine Normal (Normal)
[2022-07-25] MEDS ORDERED: Potassium Chloride Elixir 20 MEQ/15 ML UDC PO ONE (11:53)
[2022-07-25] MEDS: 0.9 % Sodium Chloride 1,000 ML IVC SCH ×2 (12:46→23:17)
[2022-07-25] MEDS: haloperidoL 1 MG TABLET PO PRN ×3 (12:55→21:59)
[2022-07-25] MEDS: Aspirin Enteric Coated 81 MG Tablet PO SCH (14:23)
[2022-07-25] MEDS: Nicotine 21 MG PATCH.TD24 TD SCH (14:23)
[2022-07-25] MEDS: QUEtiapine Fumarate 25 MG TABLET PO SCH (16:22)
[2022-07-25] MEDS: Famotidine 20 MG TABLET PO SCH (16:22)
[2022-07-25] MEDS: Melatonin 3 MG TABLET PO PRN (21:56)
[2022-07-25] MEDS: QUEtiapine Fumarate 300 MG TABLET PO SCH (22:06)
[2022-07-26 04:52] LABS: Hematocrit 37.5 % (37.5-50.1); Hemoglobin 13.3 g/dL (12.9-16.9); Mean Corpuscular HGB Conc 35.5 g/dL (31.6-35.5); Mean Corpuscular Hemoglobin 32.8 pg (28.0-33.3); Mean Corpuscular Volume 92.4 fL (83.0-100.0); Mean Platelet Volume 10.3 fL (9.4-12.4); Platelet Count 215 K/mcL (140-400); Red Blood Count 4.06 M/mcL (4.19-5.50); Red Cell Distribution Width 13.2 % (11.5-14.5); White Blood Count 9.4 K/mcL (4.3-11.1)
[2022-07-26 05:08] LABS: Calcium 8.3 mg/dL (8.6-10.3); Magnesium 1.5 mg/dL (1.6-2.6); Potassium 3.8 mEq/L (3.5-5.1)
[2022-07-26] MEDS: *HR* Enoxaparin 40 MG/0.4 ML SYRINGE SQ SCH (05:39)
[2022-07-26] MEDS: Multivit/Ca/Min/Fe/FA 1 TAB TABLET PO SCH (08:40)
[2022-07-26] MEDS: Nicotine 21 MG PATCH.TD24 TD SCH (08:40)
[2022-07-26] MEDS: Metoprolol XL (24 HR) Succ 50 MG TAB.ER.24H PO SCH (08:41)
[2022-07-26] MEDS: lisinopriL 20 MG TABLET PO SCH (08:41)
[2022-07-26] MEDS: QUEtiapine Fumarate 25 MG TABLET PO SCH ×3 (08:42→17:30)
[2022-07-26] MEDS: Famotidine 20 MG TABLET PO SCH ×2 (08:43→17:30)
[2022-07-26] MEDS: Aspirin Enteric Coated 81 MG Tablet PO SCH (08:43)
[2022-07-26] MEDS ORDERED: FluPHENAZine Decanoate 25 MG/ML MLS IM SCH (09:00)
[2022-07-26] MEDS: Melatonin 3 MG TABLET PO PRN (21:15)
[2022-07-26] MEDS: QUEtiapine Fumarate 300 MG TABLET PO SCH (21:15)
[2022-07-27] MEDS ORDERED: Ipratropium/Albuterol Neb 3 ML IH PRN (02:48)
[2022-07-27] MEDS ORDERED: Albuterol 2.5 MG/3 ML NEBULIZER IH PRN (04:00)
[2022-07-27 04:38] LABS: Hematocrit 37.7 % (37.5-50.1); Hemoglobin 13.7 g/dL (12.9-16.9); Mean Corpuscular HGB Conc 36.3 g/dL (31.6-35.5); Mean Corpuscular Volume 90.8 fL (83.0-100.0); Mean Platelet Volume 10.4 fL (9.4-12.4); Platelet Count 208 K/mcL (140-400); Red Blood Count 4.15 M/mcL (4.19-5.50); White Blood Count 15.6 K/mcL (4.3-11.1)
[2022-07-27 04:54] LABS: Albumin 3.8 g/dL (3.5-5.7); Albumin/Globulin Ratio 1.6 (1.1-2.2); Bilirubin,Total 0.9 mg/dL (0.3-1.0); Calcium 8.8 mg/dL (8.6-10.3); Globulin 2.4 g/dL (2.4-3.5); Magnesium 1.8 mg/dL (1.6-2.6); Potassium 3.5 mEq/L (3.5-5.1); Total Protein 6.2 g/dL (6.4-8.9)
[2022-07-27] MEDS: *HR* Enoxaparin 40 MG/0.4 ML SYRINGE SQ SCH (05:09)
[2022-07-27] MEDS: Famotidine 20 MG TABLET PO SCH ×2 (05:09→16:00)
[2022-07-27] MEDS: Metoprolol XL (24 HR) Succ 50 MG TAB.ER.24H PO SCH (08:24)
[2022-07-27] MEDS: Multivit/Ca/Min/Fe/FA 1 TAB TABLET PO SCH (08:24)
[2022-07-27] MEDS: lisinopriL 20 MG TABLET PO SCH (08:24)
[2022-07-27] MEDS: QUEtiapine Fumarate 25 MG TABLET PO SCH ×3 (08:24→17:02)
[2022-07-27] MEDS: Aspirin Enteric Coated 81 MG Tablet PO SCH (08:24)
[2022-07-27] MEDS: Nicotine 21 MG PATCH.TD24 TD SCH (08:26)
[2022-07-27] MEDS: Doxycycline 100 MG CAPSULE PO SCH ×2 (15:59→19:59)
[2022-07-27] MEDS: QUEtiapine Fumarate 300 MG TABLET PO SCH (19:58)
[2022-07-28] MEDS: *HR* Enoxaparin 40 MG/0.4 ML SYRINGE SQ SCH (05:10)
[2022-07-28] MEDS: Famotidine 20 MG TABLET PO SCH (05:10)
[2022-07-28 05:54] LABS: Basophils # 0.1 K/mcL (0.0-0.2); Basophils % 0.4 %; Eosinophils # 0.2 K/mcL (0.0-0.6); Eosinophils % 1.4 %; Hematocrit 37.7 % (37.5-50.1); Immature Granulocytes % 0.4 % (0-4); Lymphocytes # 1.2 K/mcL (0.6-4.6); Lymphocytes % 8.2 %; Mean Corpuscular Hemoglobin 33.2 pg (28.0-33.3); Mean Corpuscular Volume 89.3 fL (83.0-100.0); Mean Platelet Volume 10.4 fL (9.4-12.4); Monocytes # 1.6 K/mcL (0.0-1.3); Monocytes % 10.6 %; Neutrophils # 11.6 K/mcL (1.6-8.9); Platelet Count 226 K/mcL (140-400); Red Blood Count 4.22 M/mcL (4.19-5.50); White Blood Count 14.7 K/mcL (4.3-11.1)
[2022-07-28 05:55] LABS: Mean Corpuscular HGB Conc 37.1 g/dL (31.6-35.5)
[2022-07-28 05:57] LABS: Potassium 3.7 mEq/L (3.5-5.1)
[2022-07-28 07:52] VITALS: O2SAT 95
[2022-07-28] MEDS: lisinopriL 20 MG TABLET PO SCH (09:02)
[2022-07-28] MEDS: Nicotine 21 MG PATCH.TD24 TD SCH (09:02)
[2022-07-28] MEDS: Metoprolol XL (24 HR) Succ 50 MG TAB.ER.24H PO SCH (09:03)
[2022-07-28] MEDS: QUEtiapine Fumarate 25 MG TABLET PO SCH (09:03)
[2022-07-28] MEDS: Aspirin Enteric Coated 81 MG Tablet PO SCH (09:03)
[2022-07-28] MEDS: Doxycycline 100 MG CAPSULE PO SCH (09:03)
[2022-07-28 12:58] VITALS: BP 123/71; PULSE 94; RESP 17; TEMP 98.1
[2022-07-28] MEDS ORDERED: levoFLOXacin 750 MG/150 ML 750 MG/150 ML BAG IVPB SCH (17:00)
== END 2022-07-28 13:06 | disposition other institution (70) | DRG 194 ==
LOC: INPGRE 22:25 → EMEROOGRE 22:25 → INPGRE 07-25 01:35
PROVIDERS: ADMIT Internal Medicine; ATTEND Family Medicine

== ENCOUNTER 2022-07-27 15:43 | Inpatient (IN) ==
[2022-07-28] MEDS: QUEtiapine Fumarate 25 MG TABLET PO SCH (16:39)
[2022-07-28] MEDS: levoFLOXacin 750 MG/150 ML 750 MG/150 ML BAG IVPB SCH (16:40)
[2022-07-28] MEDS: Famotidine 20 MG TABLET PO SCH (20:24)
[2022-07-28] MEDS: QUEtiapine Fumarate 300 MG TABLET PO SCH (20:25)
[2022-07-29 05:38] LABS: Calcium 9.1 mg/dL (8.6-10.3); Potassium 3.7 mEq/L (3.5-5.1)
[2022-07-29 06:54] LABS: Basophils # 0.1 K/mcL (0.0-0.2); Basophils % 0.5 %; Eosinophils # 0.2 K/mcL (0.0-0.6); Eosinophils % 1.5 %; Hematocrit 36.3 % (37.5-50.1); Hemoglobin 13.4 g/dL (12.9-16.9); Immature Granulocytes % 0.4 % (0-4); Lymphocytes # 1.1 K/mcL (0.6-4.6); Lymphocytes % 10.3 %; Mean Corpuscular HGB Conc 36.9 g/dL (31.6-35.5); Mean Corpuscular Hemoglobin 33.3 pg (28.0-33.3); Mean Corpuscular Volume 90.1 fL (83.0-100.0); Mean Platelet Volume 10.1 fL (9.4-12.4); Monocytes # 1.2 K/mcL (0.0-1.3); Monocytes % 10.7 %; Neutrophils # 8.4 K/mcL (1.6-8.9); Platelet Count 195 K/mcL (140-400); Red Blood Count 4.03 M/mcL (4.19-5.50); Segmented Neutrophils % 76.6 %
[2022-07-29] MEDS: levoFLOXacin 750 MG/150 ML 750 MG/150 ML BAG IVPB SCH (08:06)
[2022-07-29] MEDS: Multivit/Ca/Min/Fe/FA 1 TAB TABLET PO SCH (08:06)
[2022-07-29] MEDS: Metoprolol XL (24 HR) Succ 50 MG TAB.ER.24H PO SCH (08:06)
[2022-07-29] MEDS: QUEtiapine Fumarate 25 MG TABLET PO SCH ×3 (08:09→16:11)
[2022-07-29] MEDS: Aspirin Enteric Coated 81 MG Tablet PO SCH (08:09)
[2022-07-29] MEDS: lisinopriL 20 MG TABLET PO SCH (08:09)
[2022-07-29] MEDS: Famotidine 20 MG TABLET PO SCH ×2 (08:09→20:01)
[2022-07-29] MEDS: Nicotine 14 MG PATCH.TD24 TD SCH (16:11)
[2022-07-29] MEDS: QUEtiapine Fumarate 300 MG TABLET PO SCH (20:01)
[2022-07-30] MEDS: *HR* Enoxaparin 40 MG/0.4 ML SYRINGE SQ SCH (05:46)
[2022-07-30] MEDS: QUEtiapine Fumarate 25 MG TABLET PO SCH ×3 (09:05→17:18)
[2022-07-30] MEDS: Famotidine 20 MG TABLET PO SCH ×2 (09:05→21:20)
[2022-07-30] MEDS: Multivit/Ca/Min/Fe/FA 1 TAB TABLET PO SCH (09:05)
[2022-07-30] MEDS: lisinopriL 20 MG TABLET PO SCH (09:05)
[2022-07-30] MEDS: Metoprolol XL (24 HR) Succ 50 MG TAB.ER.24H PO SCH (09:06)
[2022-07-30] MEDS: levoFLOXacin 750 MG/150 ML 750 MG/150 ML BAG IVPB SCH (09:06)
[2022-07-30] MEDS: Nicotine 14 MG PATCH.TD24 TD SCH (09:06)
[2022-07-30] MEDS: Aspirin Enteric Coated 81 MG Tablet PO SCH (09:06)
[2022-07-30] MEDS: QUEtiapine Fumarate 300 MG TABLET PO SCH (21:20)
[2022-07-31] MEDS: *HR* Enoxaparin 40 MG/0.4 ML SYRINGE SQ SCH (06:58)
[2022-07-31] MEDS: Multivit/Ca/Min/Fe/FA 1 TAB TABLET PO SCH (10:49)
[2022-07-31] MEDS: Metoprolol XL (24 HR) Succ 50 MG TAB.ER.24H PO SCH (10:49)
[2022-07-31] MEDS: levoFLOXacin 750 MG/150 ML 750 MG/150 ML BAG IVPB SCH (10:50)
[2022-07-31] MEDS: Aspirin Enteric Coated 81 MG Tablet PO SCH (10:50)
[2022-07-31] MEDS: Famotidine 20 MG TABLET PO SCH ×2 (10:50→19:46)
[2022-07-31] MEDS: lisinopriL 20 MG TABLET PO SCH (10:50)
[2022-07-31] MEDS: Nicotine 14 MG PATCH.TD24 TD SCH (10:50)
[2022-07-31] MEDS: QUEtiapine Fumarate 25 MG TABLET PO SCH ×3 (10:52→17:25)
[2022-07-31] MEDS: QUEtiapine Fumarate 300 MG TABLET PO SCH (19:46)
[2022-08-01 04:57] LABS: Basophils # 0.1 K/mcL (0.0-0.2); Basophils % 0.6 %; Eosinophils # 0.3 K/mcL (0.0-0.6); Eosinophils % 3.8 %; Hematocrit 36.3 % (37.5-50.1); Hemoglobin 13.1 g/dL (12.9-16.9); Immature Granulocytes % 0.3 % (0-4); Lymphocytes # 1.7 K/mcL (0.6-4.6); Lymphocytes % 19.6 %; Mean Corpuscular HGB Conc 36.1 g/dL (31.6-35.5); Mean Corpuscular Hemoglobin 32.8 pg (28.0-33.3); Mean Corpuscular Volume 90.8 fL (83.0-100.0); Mean Platelet Volume 10.6 fL (9.4-12.4); Monocytes # 0.8 K/mcL (0.0-1.3); Monocytes % 9.5 %; Neutrophils # 5.8 K/mcL (1.6-8.9); Platelet Count 221 K/mcL (140-400); Red Cell Distribution Width 13.2 % (11.5-14.5); Segmented Neutrophils % 66.2 %; White Blood Count 8.8 K/mcL (4.3-11.1)
[2022-08-01 05:11] LABS: Calcium 9.1 mg/dL (8.6-10.3); Potassium 3.4 mEq/L (3.5-5.1)
[2022-08-01] MEDS: *HR* Enoxaparin 40 MG/0.4 ML SYRINGE SQ SCH (05:32)
[2022-08-01] MEDS: Nicotine 14 MG PATCH.TD24 TD SCH (07:57)
[2022-08-01] MEDS: levoFLOXacin 750 MG/150 ML 750 MG/150 ML BAG IVPB SCH (07:57)
[2022-08-01] MEDS: QUEtiapine Fumarate 25 MG TABLET PO SCH ×3 (07:58→16:53)
[2022-08-01] MEDS: Metoprolol XL (24 HR) Succ 50 MG TAB.ER.24H PO SCH (07:58)
[2022-08-01] MEDS: lisinopriL 20 MG TABLET PO SCH (07:58)
[2022-08-01] MEDS: Aspirin Enteric Coated 81 MG Tablet PO SCH (07:58)
[2022-08-01] MEDS: Famotidine 20 MG TABLET PO SCH ×2 (07:58→19:48)
[2022-08-01] MEDS: Multivit/Ca/Min/Fe/FA 1 TAB TABLET PO SCH (07:59)
[2022-08-01] MEDS: QUEtiapine Fumarate 300 MG TABLET PO SCH (19:47)
[2022-08-02] MEDS ORDERED: Morphine Sulfate 2 MG/ML SYRINGE IVP ONE (00:18)
[2022-08-02] MEDS: *HR* Enoxaparin 40 MG/0.4 ML SYRINGE SQ SCH (04:50)
[2022-08-02] MEDS: Multivit/Ca/Min/Fe/FA 1 TAB TABLET PO SCH (08:53)
[2022-08-02] MEDS: Aspirin Enteric Coated 81 MG Tablet PO SCH (08:54)
[2022-08-02] MEDS: Famotidine 20 MG TABLET PO SCH ×2 (08:54→20:38)
[2022-08-02] MEDS: QUEtiapine Fumarate 25 MG TABLET PO SCH ×3 (08:54→16:03)
[2022-08-02] MEDS: Nicotine 14 MG PATCH.TD24 TD SCH (08:58)
[2022-08-02] MEDS: levoFLOXacin 750 MG/150 ML 750 MG/150 ML BAG IVPB SCH (08:59)
[2022-08-02] MEDS: lisinopriL 20 MG TABLET PO SCH (09:36)
[2022-08-02] MEDS: Metoprolol XL (24 HR) Succ 50 MG TAB.ER.24H PO SCH (09:36)
[2022-08-02] MEDS ORDERED: Haloperidol Lactate 5 MG/ML VIAL IVP ONE (18:46)
[2022-08-02] MEDS: QUEtiapine Fumarate 300 MG TABLET PO SCH (20:35)
[2022-08-03] MEDS ORDERED: *HR* LORazepam 2 MG/ML VIAL IVP ONE (00:08)
[2022-08-03] MEDS: *HR* Enoxaparin 40 MG/0.4 ML SYRINGE SQ SCH (04:45)
[2022-08-03] MEDS: QUEtiapine Fumarate 25 MG TABLET PO SCH ×3 (12:16→16:15)
[2022-08-03] MEDS: Aspirin Enteric Coated 81 MG Tablet PO SCH (13:37)
[2022-08-03] MEDS: Multivit/Ca/Min/Fe/FA 1 TAB TABLET PO SCH (13:38)
[2022-08-03] MEDS: Famotidine 20 MG TABLET PO SCH ×2 (13:38→21:52)
[2022-08-03] MEDS: Nicotine 14 MG PATCH.TD24 TD SCH (13:40)
[2022-08-03] MEDS: lisinopriL 20 MG TABLET PO SCH (13:47)
[2022-08-03] MEDS: Metoprolol XL (24 HR) Succ 50 MG TAB.ER.24H PO SCH ×2 (13:48→16:15)
[2022-08-03 14:10] LABS: Hematocrit 39.2 % (37.5-50.1); Hemoglobin 14.3 g/dL (12.9-16.9); Mean Corpuscular HGB Conc 36.5 g/dL (31.6-35.5); Mean Corpuscular Hemoglobin 32.9 pg (28.0-33.3); Mean Corpuscular Volume 90.3 fL (83.0-100.0); Mean Platelet Volume 10.3 fL (9.4-12.4); Platelet Count 247 K/mcL (140-400); Red Blood Count 4.34 M/mcL (4.19-5.50); Red Cell Distribution Width 13.2 % (11.5-14.5); White Blood Count 7.3 K/mcL (4.3-11.1)
[2022-08-03 14:16] LABS: Calcium 9.2 mg/dL (8.6-10.3); Magnesium 1.7 mg/dL (1.6-2.6); Potassium 3.9 mEq/L (3.5-5.1)
[2022-08-03 16:35] LABS: Bilirubin,Urine Negative (Negative); Blood,Urine Small (Negative); Clarity,Urine Clear (Clear); Color,Urine Yellow (Yellow); Glucose,Urine (UA) Normal (Normal); Ketones,Urine Negative (Negative); Leukocyte Esterase,Urine Trace (Negative); Nitrite,Urine Negative (Negative); Protein,Urine Negative (Neg-Trace); Specific Gravity,Urine 1.015 (1.010-1.025); Urobilinogen,Urine Normal (Normal)
[2022-08-03 16:40] LABS: Bacteria,Urine Few per hpf (None-Few)
[2022-08-03] MEDS ORDERED: 0.9 % Sodium Chloride 1,000 ML IVC SCH (17:00)
[2022-08-03] MEDS ORDERED: *HR* LORazepam 0.5 MG TABLET PO PRN (17:04)
[2022-08-03] MEDS: Divalproex (12 HR) 500 MG TABLET PO SCH (21:50)
[2022-08-03] MEDS: QUEtiapine Fumarate 300 MG TABLET PO SCH (21:52)
[2022-08-04] MEDS: *HR* Enoxaparin 40 MG/0.4 ML SYRINGE SQ SCH (04:49)
[2022-08-04 07:24] LABS: Hematocrit 35.9 % (37.5-50.1); Hemoglobin 13.1 g/dL (12.9-16.9); Mean Corpuscular HGB Conc 36.5 g/dL (31.6-35.5); Mean Corpuscular Hemoglobin 33.1 pg (28.0-33.3); Mean Corpuscular Volume 90.7 fL (83.0-100.0); Mean Platelet Volume 10.4 fL (9.4-12.4); Platelet Count 219 K/mcL (140-400); Red Blood Count 3.96 M/mcL (4.19-5.50); Red Cell Distribution Width 13.4 % (11.5-14.5)
[2022-08-04 08:32] LABS: Calcium 8.7 mg/dL (8.6-10.3); Magnesium 1.7 mg/dL (1.6-2.6); Potassium 3.7 mEq/L (3.5-5.1)
[2022-08-04] MEDS: QUEtiapine Fumarate 25 MG TABLET PO SCH ×3 (10:07→15:36)
[2022-08-04] MEDS: Metoprolol XL (24 HR) Succ 25 MG TAB.ER.24H PO SCH (10:07)
[2022-08-04] MEDS: Nicotine 14 MG PATCH.TD24 TD SCH (10:07)
[2022-08-04] MEDS: Multivit/Ca/Min/Fe/FA 1 TAB TABLET PO SCH (10:07)
[2022-08-04] MEDS: lisinopriL 20 MG TABLET PO SCH (10:08)
[2022-08-04] MEDS: Aspirin Enteric Coated 81 MG Tablet PO SCH (10:08)
[2022-08-04] MEDS: Famotidine 20 MG TABLET PO SCH ×2 (10:08→21:06)
[2022-08-04] MEDS: Divalproex (12 HR) 500 MG TABLET PO SCH (21:06)
[2022-08-04] MEDS: QUEtiapine Fumarate 300 MG TABLET PO SCH (21:06)
[2022-08-05] MEDS: *HR* Enoxaparin 40 MG/0.4 ML SYRINGE SQ SCH (06:48)
[2022-08-05] MEDS: Multivit/Ca/Min/Fe/FA 1 TAB TABLET PO SCH (10:23)
[2022-08-05] MEDS: Aspirin Enteric Coated 81 MG Tablet PO SCH (10:23)
[2022-08-05] MEDS: QUEtiapine Fumarate 25 MG TABLET PO SCH ×3 (10:23→16:31)
[2022-08-05] MEDS: Metoprolol XL (24 HR) Succ 25 MG TAB.ER.24H PO SCH (10:24)
[2022-08-05] MEDS: lisinopriL 20 MG TABLET PO SCH (10:24)
[2022-08-05] MEDS: Famotidine 20 MG TABLET PO SCH ×2 (10:24→20:52)
[2022-08-05] MEDS: Nicotine 14 MG PATCH.TD24 TD SCH (10:24)
[2022-08-05] MEDS: Divalproex (12 HR) 500 MG TABLET PO SCH (20:51)
[2022-08-05] MEDS: QUEtiapine Fumarate 300 MG TABLET PO SCH (20:52)
[2022-08-06 04:05] LABS: Hematocrit 35.1 % (37.5-50.1); Hemoglobin 12.9 g/dL (12.9-16.9); Mean Corpuscular HGB Conc 36.8 g/dL (31.6-35.5); Mean Corpuscular Hemoglobin 32.7 pg (28.0-33.3); Mean Corpuscular Volume 89.1 fL (83.0-100.0); Mean Platelet Volume 10.2 fL (9.4-12.4); Platelet Count 214 K/mcL (140-400); Red Blood Count 3.94 M/mcL (4.19-5.50); Red Cell Distribution Width 13.1 % (11.5-14.5); White Blood Count 6.3 K/mcL (4.3-11.1)
[2022-08-06 04:22] LABS: Calcium 8.7 mg/dL (8.6-10.3); Magnesium 1.6 mg/dL (1.6-2.6); Potassium 3.5 mEq/L (3.5-5.1)
[2022-08-06] MEDS: *HR* Enoxaparin 40 MG/0.4 ML SYRINGE SQ SCH (05:13)
[2022-08-06] MEDS: Famotidine 20 MG TABLET PO SCH ×2 (09:11→20:15)
[2022-08-06] MEDS: Aspirin Enteric Coated 81 MG Tablet PO SCH (09:12)
[2022-08-06] MEDS: Multivit/Ca/Min/Fe/FA 1 TAB TABLET PO SCH (09:12)
[2022-08-06] MEDS: Metoprolol XL (24 HR) Succ 25 MG TAB.ER.24H PO SCH (09:12)
[2022-08-06] MEDS: QUEtiapine Fumarate 25 MG TABLET PO SCH ×3 (09:12→15:04)
[2022-08-06] MEDS: lisinopriL 20 MG TABLET PO SCH (09:13)
[2022-08-06] MEDS: Nicotine 14 MG PATCH.TD24 TD SCH (09:19)
[2022-08-06] MEDS: Divalproex (12 HR) 500 MG TABLET PO SCH (20:14)
[2022-08-06] MEDS: QUEtiapine Fumarate 300 MG TABLET PO SCH (20:15)
[2022-08-07] MEDS: *HR* Enoxaparin 40 MG/0.4 ML SYRINGE SQ SCH (04:03)
[2022-08-07] MEDS: Nicotine 14 MG PATCH.TD24 TD SCH (12:16)
[2022-08-07] MEDS: QUEtiapine Fumarate 25 MG TABLET PO SCH ×3 (12:16→16:37)
[2022-08-07] MEDS: Metoprolol XL (24 HR) Succ 25 MG TAB.ER.24H PO SCH (12:17)
[2022-08-07] MEDS: lisinopriL 20 MG TABLET PO SCH (12:17)
[2022-08-07] MEDS: Famotidine 20 MG TABLET PO SCH ×2 (12:17→21:39)
[2022-08-07] MEDS: Multivit/Ca/Min/Fe/FA 1 TAB TABLET PO SCH (12:18)
[2022-08-07] MEDS: Divalproex (12 HR) 500 MG TABLET PO SCH (21:38)
[2022-08-07] MEDS: QUEtiapine Fumarate 300 MG TABLET PO SCH (21:39)
[2022-08-08] MEDS: lisinopriL 20 MG TABLET PO SCH (08:03)
[2022-08-08] MEDS: QUEtiapine Fumarate 25 MG TABLET PO SCH ×3 (08:03→17:45)
[2022-08-08] MEDS: Multivit/Ca/Min/Fe/FA 1 TAB TABLET PO SCH (08:03)
[2022-08-08] MEDS: Nicotine 14 MG PATCH.TD24 TD SCH (08:03)
[2022-08-08] MEDS: Famotidine 20 MG TABLET PO SCH ×2 (08:04→21:31)
[2022-08-08] MEDS: Metoprolol XL (24 HR) Succ 25 MG TAB.ER.24H PO SCH (08:04)
[2022-08-08] MEDS: 0.9 % Sodium Chloride 1,000 ML IVC SCH ×2 (11:08→19:20)
[2022-08-08] MEDS: QUEtiapine Fumarate 300 MG TABLET PO SCH (21:31)
[2022-08-08] MEDS: Divalproex (12 HR) 500 MG TABLET PO SCH (21:31)
[2022-08-09 04:43] LABS: Hematocrit 34.7 % (37.5-50.1); Hemoglobin 12.7 g/dL (12.9-16.9); Mean Corpuscular HGB Conc 36.6 g/dL (31.6-35.5); Mean Corpuscular Hemoglobin 33.2 pg (28.0-33.3); Mean Corpuscular Volume 90.8 fL (83.0-100.0); Platelet Count 240 K/mcL (140-400); Red Blood Count 3.82 M/mcL (4.19-5.50); Red Cell Distribution Width 13.6 % (11.5-14.5); White Blood Count 6.7 K/mcL (4.3-11.1)
[2022-08-09 04:59] LABS: Calcium 8.8 mg/dL (8.6-10.3); Magnesium 1.7 mg/dL (1.6-2.6); Potassium 3.8 mEq/L (3.5-5.1)
[2022-08-09] MEDS: lisinopriL 20 MG TABLET PO SCH (08:03)
[2022-08-09] MEDS: QUEtiapine Fumarate 25 MG TABLET PO SCH ×3 (08:03→15:32)
[2022-08-09] MEDS: Famotidine 20 MG TABLET PO SCH ×2 (08:03→21:52)
[2022-08-09] MEDS: Metoprolol XL (24 HR) Succ 25 MG TAB.ER.24H PO SCH (08:03)
[2022-08-09] MEDS: Nicotine 14 MG PATCH.TD24 TD SCH (08:04)
[2022-08-09] MEDS: Multivit/Ca/Min/Fe/FA 1 TAB TABLET PO SCH (08:04)
[2022-08-09] MEDS ORDERED: FluPHENAZine Decanoate 25 MG/ML MLS IM SCH (09:00)
[2022-08-09] MEDS: QUEtiapine Fumarate 300 MG TABLET PO SCH (21:51)
[2022-08-09] MEDS: Divalproex (12 HR) 500 MG TABLET PO SCH (21:52)
[2022-08-10] MEDS: Levothyroxine 25 MCG TABLET PO SCH (06:36)
[2022-08-10] MEDS: Metoprolol XL (24 HR) Succ 25 MG TAB.ER.24H PO SCH (08:18)
[2022-08-10] MEDS: Multivit/Ca/Min/Fe/FA 1 TAB TABLET PO SCH (08:18)
[2022-08-10] MEDS: QUEtiapine Fumarate 25 MG TABLET PO SCH ×3 (08:18→16:27)
[2022-08-10] MEDS: lisinopriL 20 MG TABLET PO SCH (08:18)
[2022-08-10] MEDS: Nicotine 14 MG PATCH.TD24 TD SCH (08:18)
[2022-08-10] MEDS: Famotidine 20 MG TABLET PO SCH ×2 (08:18→20:03)
[2022-08-10] MEDS: QUEtiapine Fumarate 300 MG TABLET PO SCH (20:03)
[2022-08-10] MEDS: Divalproex (12 HR) 500 MG TABLET PO SCH (20:03)
[2022-08-11 03:47] LABS: Basophils # 0.1 K/mcL (0.0-0.2); Basophils % 0.7 %; Eosinophils # 0.4 K/mcL (0.0-0.6); Eosinophils % 4.5 %; Hematocrit 37.9 % (37.5-50.1); Hemoglobin 13.8 g/dL (12.9-16.9); Immature Granulocytes % 0.4 % (0-4); Lymphocytes # 1.8 K/mcL (0.6-4.6); Lymphocytes % 20.8 %; Mean Corpuscular HGB Conc 36.4 g/dL (31.6-35.5); Mean Corpuscular Hemoglobin 32.9 pg (28.0-33.3); Mean Corpuscular Volume 90.5 fL (83.0-100.0); Mean Platelet Volume 10.2 fL (9.4-12.4); Monocytes # 0.8 K/mcL (0.0-1.3); Monocytes % 9.3 %; Neutrophils # 5.5 K/mcL (1.6-8.9); Platelet Count 263 K/mcL (140-400); Red Blood Count 4.19 M/mcL (4.19-5.50); Red Cell Distribution Width 13.5 % (11.5-14.5); Segmented Neutrophils % 64.3 %; White Blood Count 8.5 K/mcL (4.3-11.1)
[2022-08-11 04:01] LABS: Albumin 3.7 g/dL (3.5-5.7); Albumin/Globulin Ratio 1.3 (1.1-2.2); Bilirubin,Total 0.4 mg/dL (0.3-1.0); Globulin 2.9 g/dL (2.4-3.5); Potassium 3.7 mEq/L (3.5-5.1); Total Protein 6.6 g/dL (6.4-8.9)
[2022-08-11] MEDS: Metoprolol XL (24 HR) Succ 25 MG TAB.ER.24H PO SCH (08:32)
[2022-08-11] MEDS: Levothyroxine 25 MCG TABLET PO SCH (08:32)
[2022-08-11] MEDS: lisinopriL 20 MG TABLET PO SCH (08:32)
[2022-08-11] MEDS: Famotidine 20 MG TABLET PO SCH ×2 (08:32→20:14)
[2022-08-11] MEDS: Nicotine 14 MG PATCH.TD24 TD SCH (08:33)
[2022-08-11] MEDS: QUEtiapine Fumarate 25 MG TABLET PO SCH ×3 (08:33→16:36)
[2022-08-11] MEDS: Multivit/Ca/Min/Fe/FA 1 TAB TABLET PO SCH (08:33)
[2022-08-11] MEDS: QUEtiapine Fumarate 300 MG TABLET PO SCH (20:14)
[2022-08-12 03:54] LABS: Hematocrit 37.9 % (37.5-50.1); Hemoglobin 13.8 g/dL (12.9-16.9); Mean Corpuscular HGB Conc 36.4 g/dL (31.6-35.5); Mean Corpuscular Hemoglobin 32.6 pg (28.0-33.3); Mean Corpuscular Volume 89.6 fL (83.0-100.0); Mean Platelet Volume 10.1 fL (9.4-12.4); Platelet Count 269 K/mcL (140-400); Red Blood Count 4.23 M/mcL (4.19-5.50); Red Cell Distribution Width 13.3 % (11.5-14.5)
[2022-08-12 06:23] VITALS: BP 104/63; PULSE 115; RESP 17; TEMP 97.5; O2SAT 93
[2022-08-12 06:27] LABS: INR 1.1; Prothrombin Time 12.4 Seconds (9.4-12.1)
[2022-08-12 06:30] LABS: Activated Partial Thrombo Time 32.2 Seconds (26.0-36.0)
[2022-08-12 06:47] LABS: Albumin 3.9 g/dL (3.5-5.7); Albumin/Globulin Ratio 1.3 (1.1-2.2); Bilirubin,Total 0.6 mg/dL (0.3-1.0); Calcium 9.5 mg/dL (8.6-10.3); Globulin 3.1 g/dL (2.4-3.5); Magnesium 1.6 mg/dL (1.6-2.6); Potassium 3.9 mEq/L (3.5-5.1)
[2022-08-12] MEDS: Levothyroxine 25 MCG TABLET PO SCH (07:53)
[2022-08-12] MEDS: Nicotine 14 MG PATCH.TD24 TD SCH (07:54)
[2022-08-12] MEDS: lisinopriL 20 MG TABLET PO SCH (07:54)
[2022-08-12] MEDS: QUEtiapine Fumarate 25 MG TABLET PO SCH (07:54)
[2022-08-12] MEDS: Metoprolol XL (24 HR) Succ 25 MG TAB.ER.24H PO SCH (07:54)
[2022-08-12] MEDS: Famotidine 20 MG TABLET PO SCH (08:02)
[2022-08-12] MEDS: Multivit/Ca/Min/Fe/FA 1 TAB TABLET PO SCH (08:02)
== END 2022-08-12 08:15 | DRG 92 ==
LOC: INPGRE 07-28 13:07 → SUATTDRO 07-28 13:07 → INPGRE 08-03 15:54
PROVIDERS: ADMIT Family Medicine; ATTEND Family Medicine